=== PATIENT | male | born 1960 | race Caucasian/White ===

== ENCOUNTER 2018-12-09 08:04 | Emergency (ER) | payer MEDICAID ==
[~2018-12-09] VITALS: Ht 170.2 cm; Wt 80.4 kg
[2018-12-09 08:08] VITALS: BP 135/67
[2018-12-09 09:00] LABS: APPEARANCE,URINE SL CLOUDY (CLEAR); BILIRUBIN,URINE 1+ (NEGATIVE); COLOR,URINE YELLOW (YELLOW); LEUKOCYTE ESTERASE ,URINE 3+ (NEGATIVE); NITRITE, URINE NEGATIVE (NEGATIVE); UGLUCOSE NEGATIVE (NEGATIVE)
[2018-12-09 09:22] LABS: BLOOD, URINE 1+ (NEGATIVE); WBC,URINE 20-60 /HPF (0-5)
[2018-12-09 09:25] LABS: RBC,URINE 0-5 /HPF (0-5)
[2018-12-09] MEDS ORDERED: KETOROLAC 30 MG/ML VIAL IVP ONE (09:35)
[2018-12-09] MEDS ORDERED: NACL 0.9% 1,000 ML IV ONE (09:35)
[2018-12-09] MEDS ORDERED: PHENAZOPYRIDINE 100 MG TAB PO ONE (09:35)
[2018-12-09 09:55] LABS: BASOPHILS % (AUTO) 0.1 % (0.0-2.0); HEMATOCRIT 44.6 % (36-52); LYMPHOCYTES # (AUTO) 0.6 K/uL (2.0-11.5); LYMPHOCYTES % (AUTO) 4.2 % (20.5-51.1); MEAN CORPUSCULAR HEMOGLOBIN 31 pg (27-31); MEAN CORPUSCULAR HGB CONC 34 g/dL (33-37); MEAN CORPUSCULAR VOLUME 90.3 fL (80-94); MONOCYTES # (AUTO) 0.7 K/uL (0.8-1.0); MONOCYTES % (AUTO) 4.9 % (1.7-9.3); NEUTROPHILS # (AUTO) 12.8 K/uL (1.8-7.7); NEUTROPHILS % (AUTO) 90.8 % (42.2-75.2); PLATELET COUNT (AUTO) 184 K/uL (140-450); RED BLOOD CELL COUNT(AUTO) 4.94 MIL/uL (4.20-6.10); RED CELL DISTRIBUTION WIDTH 13.2 % (11.6-13.7)
[2018-12-09 10:05] LABS: ANION GAP 9.3 (8-16); CARBON DIOXIDE 31.3 mmol/L (21-32); POTASSIUM 3.6 mmol/L (3.5-5.1)
[2018-12-09] MEDS ORDERED: cefTRIAXone 1,000 MG in LIDOCAINE MPF 1% - 5 mL VIAL 2.1 ML IM ONE (11:00)
[2018-12-09 11:29] VITALS: BP 131/70
== END 2018-12-09 11:29 | disposition home or self-care (01) ==
LOC: MED 08:04
DX: N39.0 Urinary tract infection, site not specified (principal)
CPT/HCPCS: 36415; 80048; 81001; 85025; 87086; 87186; 96372; 96374; 99283; J0696; J1885; J2001; J7030

== ENCOUNTER 2018-12-11 07:54 | Emergency (ER) | payer MEDICAID ==
[~2018-12-11] VITALS: Ht 170.2 cm; Wt 79.4 kg
[2018-12-11 07:56] VITALS: BP 144/90
--- NOTE | 2018-12-11 08:08 | NUR ---
PATIENT AMBULATED TO BED 12
--- NOTE | 2018-12-11 08:40 | NUR ---
C/O BILAT LOWER ABD PAIN RADIATING TO BACK, DYSURIA, AND FREQUENCY 10/ X4 DAYS. PT WAS SEEN AT [facility] 12/09/18 FOR SIMILAR SYMPTOMS AND WAS DISCHARGED WITH ANTIBIOTICS AND PYRIDIUM. PT REPORTS SYMPTOMS HAVE WORSENED AND HE NOW FEELS LIKE HE IS GOING TO "FAINT" WHEN HE URINATES, AND THE PAIN IS NOW RADIATING TO HIS BILAT LOWER BACK. DENIES N/V/FEVER. PT REPORTS OCCASIONAL CHILLS. PT PLACED IN GOWN, URINE SAMPLE COLLECTED. BED IN LOW POSITION AND SIDE RAIL UP X1.
--- NOTE | 2018-12-11 08:49 | NUR ---
PATIENT TAKEN TO CT VIA GURNEY, ACCOMPANIED BY POLICE MANAGER.
--- NOTE | 2018-12-11 09:05 | NUR ---
PT RETURNED FROM CT
[2018-12-11 09:06] LABS: APPEARANCE,URINE CLEAR (CLEAR); BILIRUBIN,URINE 2+ (NEGATIVE); BLOOD, URINE 1+ (NEGATIVE); COLOR,URINE DARK YELLOW (YELLOW); LEUKOCYTE ESTERASE ,URINE 1+ (NEGATIVE); NITRITE, URINE POSITIVE (NEGATIVE); UGLUCOSE TRACE (NEGATIVE)
[2018-12-11] MEDS ORDERED: cefTRIAXone 1,000 MG in LIDOCAINE MPF 1% - 5 mL VIAL 2.1 ML IM ONE (09:45)
[2018-12-11 09:51] LABS: RBC,URINE 0-5 /HPF (0-5)
[2018-12-11 10:48] VITALS: BP 147/81
--- NOTE | 2018-12-11 10:48 | NUR ---
Patient discharged with v/s stable. Written and verbal after care instructions given and explained. Patient alert, oriented and verbalized understanding of instructions. Ambulatory with steady gait. All questions addressed prior to discharge. ID band removed. Patient advised to follow up with PMD. Rx of PHENAZPPYRIDINE & LEVAQUIN given. Patient educated on indication of medication including possible reaction and side effects. Opportunity to ask questions provided and answered.
--- NOTE | 2018-12-13 18:31 | NUR ---
PHONE NUMBER ON FILE STATES THE NUMBER IS NOT IN SERVICE. THERE ARE NO OTHER NUMBERS ON FILE TO GET IN CONTACT WITH PATIENT AT THIS TIME.
--- NOTE | 2018-12-14 09:27 | NUR ---
CALLED INFECTION [employer]OL- LEFT INFORM IN HER CUBBY FOR FOLLOW WITH PT.
== END 2018-12-11 10:48 | disposition home or self-care (01) ==
LOC: MED 07:54
DX: N39.0 Urinary tract infection, site not specified (principal); N41.9 Inflammatory disease of prostate, unspecified
CPT/HCPCS: 74176; 81001; 87086; 87186; 99284; J0696; J2001

== ENCOUNTER 2021-11-06 14:17 | Emergency (ER) | payer MEDICAID ==
[~2021-11-06] VITALS: Ht 162.6 cm; Wt 82.1 kg
[2021-11-06 14:37] VITALS: BP 147/81
[2021-11-06] MEDS ORDERED: OFLO5SOL27 RIGHT EAR (14:58)
[2021-11-06] MEDS ORDERED: IBUP-1842 PO (14:58)
[2021-11-06 15:15] VITALS: BP 118/80
--- NOTE | 2021-11-06 15:15 | NUR ---
Patient discharged with v/s stable. Written and verbal after care instructions given and explained. Patient alert, oriented and verbalized understanding of instructions. Ambulatory with steady gait. All questions addressed prior to discharge. ID band removed. Patient advised to follow up with PMD. Rx of MOTRIN FLOXIN OT given. Patient educated on indication of medication including possible reaction and side effects. Opportunity to ask questions provided and answered.
== END 2021-11-06 15:15 | disposition home or self-care (01) ==
LOC: MED 14:17
DX: H60.91 Unspecified otitis externa, right ear (principal)
CPT/HCPCS: 99283

== ENCOUNTER 2022-08-10 07:17 | Emergency (ER) | payer MEDICAID ==
[~2022-08-10] VITALS: Ht 170.2 cm; Wt 84.8 kg
[~2022-08-10 07:17] MED LIST: IBUP-1842 PO; OFLO5SOL27 RIGHT EAR
[2022-08-10] MEDS ORDERED: HYDROcodone/APAP 5/325 MG 1 TAB TAB PO ONE (07:35)
[2022-08-10 07:38] VITALS: BP 163/80
[2022-08-10] MEDS ORDERED: TRAM50TA3 PO (07:43)
[2022-08-10] MEDS ORDERED: IBUP-2213 PO (07:43)
[2022-08-10] MEDS ORDERED: LIDO28CR2 TP (07:48)
[2022-08-10 08:26] VITALS: BP 142/83
--- NOTE | 2022-08-10 08:29 | NUR ---
Patient discharged with v/s stable. Written and verbal after care instructions given and explained. Patient alert, oriented and verbalized understanding of instructions. Ambulatory with steady gait. All questions addressed prior to discharge. ID band removed. Patient advised to follow up with PMD. Rx of FLEXERIL given. Patient educated on indication of medication including possible reaction and side effects. Opportunity to ask questions provided and answered.
== END 2022-08-10 08:26 | disposition home or self-care (01) ==
LOC: MED 07:17
DX: K64.4 Residual hemorrhoidal skin tags (principal); Z79.899 Other long term (current) drug therapy; Z79.1 Long term (current) use of non-steroidal anti-inflammatories (NSAID); Z79.2 Long term (current) use of antibiotics
CPT/HCPCS: 99283